=== PATIENT | male | born 1975 | race Hispanic/Latino ===

== ENCOUNTER → 2023-12-28 | Outpatient (CLI) | payer BC ==
[~2023-12-28] MED LIST: IOHEXOL 350 MG/ML 100ML INFUS..BTL IV ONE
[2023-12-28 10:14] LABS: CREATININE 0.6 mg/dL (0.5-1.3)
== END | disposition home or self-care (01) ==
LOC: RAH 09:09
PROVIDERS: ATTEND Internal Medicine
DX: K74.60 Unspecified cirrhosis of liver (principal); K82.8 Other specified diseases of gallbladder; R63.4 Abnormal weight loss; M47.815 Spondylosis without myelopathy or radiculopathy, thoracolumbar region; R60.9 Edema, unspecified
CPT/HCPCS: 74177; 84520; 82565; 36415; Q9967